=== PATIENT | female | born 1985 | race Caucasian/White ===

== ENCOUNTER 2021-04-01 08:27 | Emergency (ER) | payer OTHER, SELFPAY ==
[2021-04-01 08:39] VITALS: BP 124/80; PULSE 77; RESP 16; TEMP 36.3; O2SAT 100
--- NOTE | 2021-04-01 09:05 | ED.NAVMDI ---
HPI - Nausea/Vomiting/Diarrhea General Chief complaint: Nausea/Vomiting/Diarrhea Stated complaint: Vomiting Time Seen by Provider: 04/01/21 09:07 Source: patient, RN notes reviewed and old records reviewed Mode of arrival: ambulatory Limitations: no limitations History of Present Illness HPI Narrative: 35-year-old female who presents to [facility] with complaints of nausea and vomiting since Sunday. Patient reports that they had a luncheon at work on Sunday and later in the afternoon is when she started having nausea and vomiting. She reports no one else at work is having any similar symptoms. Patient states she has had nausea and vomiting since with approximately 15 episodes of emesis. Patient has some upper epigastric tenderness denies any lower abdominal pain or cramping. Patient reports taking ibuprofen for her discomfort. She reports highest fever of 99.6 denies any chills or sweats, reports some nasal drainage and cough which she attributes to sinus allergies. Patient denies any diarrhea, no bilious or blood noted in emesis. MD elicited complaint: nausea, vomiting and abdominal pain (upper epigastric pain) Onset (ago): day(s) (3) Associated nausea: Yes Associated abdominal pain: Yes Location of pain: epigastric (Upper) Radiation: epigastric Severity: moderate Pain scale (0-10): 5 Quality: aching Exacerbating factors: eating and vomiting Relieving factors: none Associated symptoms: cough, nausea/vomiting and other (Epigastric pain) Treatment prior to arrival: NSAIDs and other (Pedialyte) Related Data Home Medications Medication Instructions Recorded Confirmed No Home Medications 04/01/21 04/01/21 Allergies Allergy/AdvReac Type Severity Reaction Status Date / Time strawberry Allergy Intermediate Verified 04/01/21 08:50 Review of Systems Review of Systems: CONSTITUTIONAL: Reports low grade fever, no chills, or sweats. EYES: Denies visual changes, redness, or discharge. ENT: positive for clear rhinorrhea, no congestion, sore throat, or otalgia. CARDIOVASCULAR: Denies chest pain, palpitations, or edema. RESPIRATORY: Positive for dry cough no dyspnea. GASTROINTESTINAL: reports upper epigastric abdominal pain, nausea, vomiting, no diarrhea. GENITOURINARY: Denies dysuria or hematuria. SKIN: Denies rash or itching. MUSCULOSKELETAL: Denies back pain, joint pain, or myalgia. NEUROLOGIC: Denies headache, numbness, or weakness. PSYCHIATRIC: Denies anxiety or depression. All systems reviewed & are unremarkable except as noted in HPI and below PMFSH Past Medical History Medical History (Updated 04/02/21 @ 00:00 by Jose Alfredo Melendez) History of metrorrhagia depression Surgical History Surgical History (Updated 04/01/21 @ 09:30 by Caro Leroy NP) History of tonsillectomy Previous section Status post hysteroscopic ablation of endometrium Family History Family History (Updated 04/04/21 @ 13:39 by Caro Leroy NP) Mother Arthritis Social History Social History (Updated 04/01/21 @ 09:30 by Caro Leroy NP) Smoking status: Former smoker Additional smoking assessment comments: Quit 3 weeks ago Alcohol intake: never Living arrangements: with family Gender identity (if verbalized by the patient): Female Comments At time of signature, agree with nursing past medical, surgical, social and family history. There is no relevant family history pertinent to the presenting complaint Exam Narrative: GENERAL: Well-appearing, well-nourished, and in no acute distress. HEAD: Normocephalic, atraumatic. EYES: PERRLA and EOMI. ENT: Nares clear, no rhinorrhea or epistaxis. Mucous membranes moist. NECK: Supple. no lymphadenopathy CHEST: Clear to auscultation. No respiratory distress.SAO2 100% on room air HEART: Regular rate and rhythm. No murmur heard. Normal peripheral pulses. ABDOMEN: Soft, upper epigastric tenderness, no McBurney point tenderness or tenderness along
== END 2021-04-01 09:41 | disposition home or self-care (01) ==
PROVIDERS: Emergency Provider Registered Nurse
DX: K52.9 Noninfective gastroenteritis and colitis, unspecified (principal); Z87.891 Personal history of nicotine dependence
CPT/HCPCS: 99213; G0463

== ENCOUNTER 2021-08-03 10:12 | Emergency (ER) | payer OTHER, SELFPAY ==
[2021-08-03 10:20] VITALS: BP 122/69; PULSE 79; RESP 16; TEMP 37.2; O2SAT 99
--- NOTE | 2021-08-03 11:24 | ED.GENADULT ---
HPI - General Adult General Chief complaint: Upper Respiratory Infection Stated complaint: SORE THROAT Source: patient Mode of arrival: ambulatory Limitations: no limitations History of Present Illness HPI narrative: Patient is a 36-year-old female who presents to the [facility] via POV for evaluation of upper respiratory symptoms that have been present for 4 days. Additionally, she reports dry cough, sore throat, frontal headache, and chest tightness. Tylenol cold medications provide minimal relief. Symptoms worsen at night. Denies known exposure to sick contacts. She is fully vaccinated against Covid. She has had 2 - home Covid tests. Both of her children were tested yesterday for re-entry back into school since they have been exposed to her illness. They tested negative at their pediatricians. Related Data Allergies Allergy/AdvReac Type Severity Reaction Status Date / Time strawberry Allergy Intermediate Rash Verified 08/03/21 10:45 Review of Systems Review of Systems: Denies history of hypertension, renal insufficiency, diabetes mellitus, COPD, bronchitis, asthma, and pneumonia. Denies current/past tobacco use. Pertinent negatives: fever, sweats, chills, change in appetite, fatigue, skin color changes, severe persistent headaches, nasal congestion/discharge, dizziness, lymphadenopathy, sinus problems, ear pain/drainage, chest pain, heart murmurs, heart palpitations, shortness of breath, wheezing, cyanosis, hemoptysis, hoarseness, orthopnea, pleuritic pain, nausea, vomiting, diarrhea, and myalgias. [facility] Past Medical History Medical History History of metrorrhagia depression Surgical History Surgical History History of tonsillectomy Previous section Status post hysteroscopic ablation of endometrium Family History Family History Mother Arthritis Social History Social History Smoking status: Former smoker Additional smoking assessment comments: Quit 3 weeks ago Alcohol intake: never Gender identity (if verbalized by the patient): Female Comments I have reviewed and agree with the patient's past medical, surgical, social, and family hx as documented by the RN. There is no relevant family history pertinent to the presenting complaint. Exam Narrative: GENERAL: Well-appearing, well-nourished, and in no acute distress. HEAD: Normocephalic, atraumatic. No sinus tenderness or facial swelling appreciated. EYES: PERRLA and EOMI. No evidence of erythema, swelling, or drainage. ENT: Bilateral external ears and ear canals normal. Bilateral TMs are normal.No TM perforation. Nares clear, no rhinorrhea or epistaxis. Bilateral turbinates without erythema/ swelling. Mucous membranes moist and pink. Uvula is midline without erythema and swelling. Mild erythema noted to posterior pharynx. No evidence of petechial rash, cobblestoning, lesions, ulcers, swelling, exudates, peritonsillar abscess, tenting, or drooling. Breath odor and voice normal. NECK: Supple. No Lymphadenopathy or nuchal rigidity appreciated. CHEST: Bilateral lung garcia are clear to auscultation. No respiratory distress. No evidence of cough or pleuritic cp upon examination. HEART: Regular rate and rhythm. No murmur, gallop, or rub heard. EXTREMITIES: Normal range of motion. No edema. SKIN: Warm, dry, no rash. NEURO: No focal deficits. Alert and oriented x3. Course Course Emergency Course: The patient/guardian displays adequate decision making capability and despite a detailed discussion of alternatives, benefits, risks, and consequences refuses COVID-19 testing Vital Signs Vital signs: Vital Signs Temperature 98.9 F 08/03/21 10:20 Pulse Rate 79 08/03/21 10:20 Respiratory Rate
== END 2021-08-03 11:48 | disposition home or self-care (01) ==
PROVIDERS: Emergency Provider Nurse Practitioner Family
DX: J06.9 Acute upper respiratory infection, unspecified (principal); Z87.891 Personal history of nicotine dependence
CPT/HCPCS: 87081; 87880; 99213; G0463